=== PATIENT | female | born 1965 | race Caucasian/White ===

== ENCOUNTER 2021-05-24 08:39 | Day surgery (SDC) | payer OTHER ==
[2021-05-21 16:48] LABS: Potassium 3.7 mmol/L (3.5-5.1)
[2021-05-21 16:55] LABS: Absolute Lymphocytes (CBC) 1.6 K/uL (0.7-4.9); Basophils % 0.9 % (0-1.3); Hematocrit 41.2 % (36.0-45.0); Lymphocytes % 17.9 % (15.3-44.8); RBC Red Blood Cell Count 4.51 M/uL (3.86-4.86)
--- NOTE | 2021-05-21 16:55 | RAD REPORT ---
EXAM DESCRIPTION: Angela Leach (2 Views)05/21/2021 4:23 pm CLINICAL HISTORY: Preop/hypertension COMPARISON: None FINDINGS: The lungs appear clear of acute infiltrate. The heart is normal size IMPRESSION: No acute abnormalities displayed
[2021-05-21 16:58] LABS: Protime INR 0.92
[2021-05-24] MEDS ORDERED: HEPA 1000U/500MLS 1,000 UNIT/500 ML BAG IV ONE (09:01)
[2021-05-24] MEDS ORDERED: LIDOCAINE 1% 20 ML MDV ONE (09:01)
[2021-05-24] MEDS ORDERED: NA CHLORIDE 0.9% 500 ML ONE (09:24)
[2021-05-24] MEDS ORDERED: MIDAZOLAM HCL 2 MG/2 ML INJ ONE ×2 (09:31→09:54)
[2021-05-24] MEDS ORDERED: FENTANYL CITR 100 MCG/2 ML ONE (09:32)
[2021-05-24] MEDS ORDERED: ATROPINE SULF 1 MG/10 ML SYR IV ONE (09:33)
[2021-05-24] MEDS ORDERED: NA CHLORIDE 0.9% 50 ML ONE (09:33)
[2021-05-24] MEDS ORDERED: NITROGLYCERIN 100 MCG/ML SYR (for cath lab use only) IV ONE (09:49)
[2021-05-24] MEDS ORDERED: NITROGLYCERIN/D5W 25 MG/250 ML BTL IV ONE (09:49)
[2021-05-24 09:59] VITALS: TEMP 96.8
[2021-05-24] MEDS ORDERED: PRASUGREL (EFFIENT) 10 MG TAB ONE (10:21)
[2021-05-24] MEDS ORDERED: ASPIRIN 325 MG TAB ONE (10:21)
--- NOTE | 2021-05-24 11:01 | OP ---
Surgeon: Qasim Duarte MD Retail Clerk: Lucy Hollins. Reason For Admission: Left heart catheterization, selective coronary arteriogram, primary stent of t he LAD. Indication: Chest pain, abnormal stress test. Ms. Wetzel is 55, no previous medical history, came in with chest pain. Had a positive stress test which was abnormal in the anteroapical wall. Procedure In Detail: Brought to the [facility] conservation lab[facility] today, prepped and draped in the routine sterile fashio n. Given Versed and fentanyl for sedation. A 6-Italian sheath introduced in the right common femoral artery successfully. Angiography there was normal. Angio-Seal was used to close the case. Marie catheters were used to do the diagnostic catheterization. She had a normal RCA. She had really no left main, dual ostium, normal circumflex which was left dominant. She had an 80% very proximal LAD stenosis before the first diagonal, it was a large vessel. We decided to intervene. An XBLAD 3.5 gu valerie with side-hole was used to cannulate the left main. A [place] wire 0.014 extra length was used to cross the lesion successfully. A 3.0 x 16 synergy stent was placed in the lesion at 11 atmospheres with 0% residual. The patient tolerated the procedure well. There were no complications. Blood Loss: 5 mL. Final Diagnosis: Coronary artery disease, status post successful primary stent of the proximal LAD. The patient received Effient, Angiomax, and aspirin during the procedure. ACT was adequate. Anesthesia: Total conscious sedation was 45 minutes. The patient will remain in the hospital for 8 hours after the procedure and she can go home today. S he will go home on aspirin, Effient, statin, and whatever she takes at home. She will see me in the office in 2 weeks. SONNY/YANI Voice ID: [id number] Report ID: [id number]
[2021-05-24 15:52] VITALS: O2SAT 99
[2021-05-24 15:55] VITALS: BP 128/88
== END 2021-05-24 16:00 | disposition home or self-care (01) ==
LOC: CCL 08:39
DX: I25.10 Atherosclerotic heart disease of native coronary artery without angina pectoris (principal); I10 Essential (primary) hypertension; R00.2 Palpitations; K21.9 Gastro-esophageal reflux disease without esophagitis; E03.9 Hypothyroidism, unspecified; Z88.2 Allergy status to sulfonamides; Z20.822 Contact with and (suspected) exposure to COVID-19; Z82.49 Family history of ischemic heart disease and other diseases of the circulatory system
CPT/HCPCS: 36415; 71046; 80048; 85025; 85347; 85610; 85730; 92928; 93454; C1725; C1760; C1877; C1893; J0583; J1644; J2250; J3010; J7040; U0003